=== PATIENT | female | born 1960 | race African-American/Black ===

== ENCOUNTER 2016-12-19 14:19 | Emergency (ER) | payer BC ==
[~2016-12-19] VITALS: Ht 160 cm; Wt 117.9 kg
[~2016-12-19 14:19] MED LIST: BENTYL 20 MG TA20 M1 PO; GLUCOPHAGE XR500 MG PO; GLYBURIDE 5 MG T5 M1 PO; HYDROCODONE-AP1 EAC6 PO; IBUPROFEN 600600 M1 PO; LISINOPRIL5 MG PO; NAPROSYN500 MG PO; NORCO 5-325 TA1 EACH PO; PHENERGAN 25 MG25 M1 PO; VALIUM5 MG PO; VITAMIN D 5050000 I1 PO
[2016-12-19] MEDS ORDERED: COZAAR 50 MG TA50 M2 PO (15:16)
[2016-12-19] MEDS ORDERED: TIZANIDINE HCL4 MG PO (15:58)
[2016-12-19] MEDS ORDERED: IBUPROFEN 600600 M1 PO (15:58)
[2016-12-19 16:33] VITALS: BP 168/88
== END 2016-12-19 16:34 | disposition home or self-care (01) ==
LOC: ER 14:19
DX: S16.1XXA Strain of muscle, fascia and tendon at neck level, initial encounter (principal); S39.012A Strain of muscle, fascia and tendon of lower back, initial encounter; S80.01XA Contusion of right knee, initial encounter; M25.532 Pain in left wrist; M25.531 Pain in right wrist; E11.9 Type 2 diabetes mellitus without complications; F10.99 Alcohol use, unspecified with unspecified alcohol-induced disorder; Z88.8 Allergy status to other drugs, medicaments and biological substances; V59.9XXA Occupant (driver) (passenger) of pick-up truck or van injured in unspecified traffic accident, initial encounter; Y93.89 Activity, other specified; Y92.89 Other specified places as the place of occurrence of the external cause; Y99.8 Other external cause status

== ENCOUNTER 2018-12-11 13:31 | Emergency (ER) | payer BC ==
[~2018-12-11] VITALS: Ht 165.1 cm; Wt 90.7 kg
[~2018-12-11 13:31] MED LIST changes: +COZAAR 50 MG TA50 M2 PO; +CRUTCHES MISCELL; +SENNA8.6 MG PO; +TIZANIDINE HCL4 MG PO
[2018-12-11] MEDS ORDERED: MOBIC7.5 MG PO (15:04)
[2018-12-11 15:20] VITALS: BP 175/84
== END 2018-12-11 15:49 | disposition home or self-care (01) ==
LOC: ER 13:31
DX: M79.645 Pain in left finger(s) (principal); M54.6 Pain in thoracic spine; Z88.8 Allergy status to other drugs, medicaments and biological substances; E11.9 Type 2 diabetes mellitus without complications; Z79.899 Other long term (current) drug therapy; W22.8XXA Striking against or struck by other objects, initial encounter; Y93.89 Activity, other specified; Y92.89 Other specified places as the place of occurrence of the external cause; Y99.9 Unspecified external cause status

== ENCOUNTER → 2019-02-12 | Outpatient (CLI) | payer BC ==
[~2019-02-12] MED LIST changes: +MOBIC7.5 MG PO
== END ==
LOC: RAD 01:19
DX: Z12.31 Encounter for screening mammogram for malignant neoplasm of breast (principal)

== ENCOUNTER 2019-11-30 17:06 | Emergency (ER) | payer BC ==
[~2019-11-30] VITALS: Ht 160 cm; Wt 107.5 kg
[2019-11-30] MEDS ORDERED: NORFLEX100 MG PO (18:30)
[2019-11-30] MEDS ORDERED: NAPROSYN500 MG PO (18:30)
[2019-11-30 19:48] VITALS: BP 156/95
== END 2019-11-30 19:49 | disposition home or self-care (01) ==
LOC: ER 17:06
DX: M54.12 Radiculopathy, cervical region (principal); E11.9 Type 2 diabetes mellitus without complications; Z79.899 Other long term (current) drug therapy; Z88.8 Allergy status to other drugs, medicaments and biological substances